=== PATIENT | male | born 1945 | race African-American/Black ===

== ENCOUNTER 2016-10-02 15:27 | Emergency (ER) | payer MEDICARE, OTHER ==
[2016-10-25] MEDS ORDERED: HYDROCODON-ACE1 EAC7 PO (06:44)
[2016-10-25] MEDS ORDERED: NEURONTIN300 MG PO (06:44)
== END 2016-10-02 15:54 | disposition home or self-care (01) ==
LOC: CFTX 15:27
DX: S91.332D Puncture wound without foreign body, left foot, subsequent encounter (principal); I10 Essential (primary) hypertension; E11.9 Type 2 diabetes mellitus without complications; Z88.0 Allergy status to penicillin; Z23 Encounter for immunization; E78.00 Pure hypercholesterolemia, unspecified
CPT/HCPCS: 73630; 90471; 90715; 99282; 99283

== ENCOUNTER 2016-10-06 20:54 | Inpatient (IN) | payer MEDICARE, OTHER ==
--- NOTE | ~2016-10-06 | DS ---
Unit #: [id number] #: [id number] Patient: ARELIS MEJÍA [id number] [address] [place], [place] [address] [id number] I MR#: [id number] NAME: ARELIS MEJÍA ROOM: 205 Age: 71 Sex: M Admission Date: 10/06/2016 : 1945 Discharge Date: 10/09/2016 Attending Physician: Dandre Heredia M.D. Primary Care Physician: Elpidio Antunez M.D. DISCHARGE SUMMARY FINAL DIAGNOSIS Left foot cellulitis, failed outpatient Cipro. SECONDARY DIAGNOSES 1. Diabetes mellitus type 2. 2. Hypertension. 3. Hyperlipidemia. 4. Peripheral vascular disease. CONSULTS None. DIAGNOSTIC STUDIES IMAGING: He had a CT scan of his left foot, which showed cellulitis. HOSPITAL COURSE This is a 71-year-old male who presented with cellulitis of the left foot, history of stepping on a nail. CT was done to evaluate for abscess. It was negative. CT just showed soft tissue infection. He was initially started on vancomycin; however, this was discontinued, and the plan is to discharge him home on oral Zyvox. He is to continue his course of Zyvox for 14 days and follow up with his PCP in the next 3-5 days. Will give him Percocet for pain. He will be discharged in stable condition. MEDICATIONS ON DISCHARGE 1. Percocet 10/325 mg 1 tablet p.o. q.4 hours p.r.n. (#30 pills given). 2. Zyvox 600 mg p.o. b.i.d. for 14 days. 3. Januvia 100 mg p.o. daily per home dose. 4. Norvasc 10 mg p.o. q.h.s. 5. TriCor 145 mg p.o. daily. 6. Lovastatin 10 mg at bedtime. 7. Lisinopril 30 mg p.o. daily. 8. Florastor 250 mg p.o. b.i.d. 9. Aspirin 81 mg p.o. daily. 10. Glipizide 20 mg p.o. b.i.d. 11. Vitamin D 1,000 units p.o. daily. DISCHARGE PLAN He will be discharged home with home health if he is agreeable. NOTE: Time spent coordinating discharge was about 24 minutes. Unit #: [id number] #: [id number] Patient: ARELIS MEJÍA Dictated by..Nikki Choi/campbell TD: 10/09/2016 12:22 JOB #: [id number] DISCHARGE SUMMARY X Parul Burns MD X DISCHARGE SUMMARY
--- NOTE | ~2016-10-06 | CT90 ---
[facility] A Service of [facility] RADIOLOGY TEXT RESULTS PATIENT: ARELIS MEJÍA LOCATION: C2A : 46 UNIT #: [id number] AGE: [address]: Dandre Heredia MD SEX: M ORDER DR: [id number] [facility] [address] [facility]. [place], [place] [address] [id number] I MR#: [id number] Acc #: [id number] NAME: ARELIS MEJÍA : 1945 SEX: M STUDY DATE/TIME: 10/07/2016 17:43 UNIT: C2 ROOM: 205 STUDY DESCRIPTION: CT Lower Ext Lt W Cont Attending Physician: Dandre Heredia M.D. Ordering Physician: Dandre Heredia M.D. Primary Care Physician: Elpidio Antunez M.D. MEDICAL IMAGING REPORT This report is preliminary unless electronic signature is present EXAM CT of the left foot with IV contrast 10/07/2016 at 17:43 HISTORY Diffuse left foot redness over the metatarsal regions, left foot cellulitis. Evaluate for abscess. Stepped on a nail on 10/02/2016. COMPARISON Left foot radiographs 10/06/2016. TECHNIQUE 2 mm axial images through the left foot after IV contrast administration. Sagittal and coronal reformatted images were obtained. This CT exam was performed with one or more of the following radiation dose reduction techniques: automatic exposure control, adjustment of mA and/or kV according to patient size, and iterative reconstruction. FINDINGS Diffuse subcutaneous edema and skin thickening is seen throughout the imaged left foot and ankle, in keeping with a stated history of cellulitis. However, no drainable fluid collection or abscess is identified. Dense calcific atherosclerotic features are demonstrated in the left foot and ankle. No periosteal reaction is seen and no CT evidence of osteomyelitis. No retained radiopaque foreign body. IMPRESSION 1. Diffuse left foot and ankle soft tissue swelling and skin thickening in keeping the stated history of cellulitis. No drainable fluid collection, abscess or retained radiopaque foreign body is seen. [facility] A Service of [facility] RADIOLOGY TEXT RESULTS PATIENT: ARELIS MEJÍA LOCATION: [facility] 205-01 : 46 UNIT #: [id number] AGE: [address]: Dandre Heredia MD SEX: M ORDER DR: Dictated by... Yu Teixeira M.D. THIS IS AN ELECTRONICALLY VERIFIED REPORT Yu Teixeira M.D. at 10/08/2016 9:14 AM VERNELL/felice TD: 10/07/2016 23:12 JOB #: [id number] MEDICAL IMAGING REPORT COPY
--- NOTE | ~2016-10-06 | CR126 ---
[facility] A Service of [facility] RADIOLOGY TEXT RESULTS PATIENT: ARELIS MEJÍA LOCATION: [facility] 205-01 : 46 UNIT #: [id number] AGE: [address]: Dandre Heredia MD SEX: M ORDER DR: [id number] [facility] [address] [facility]. [place], [place] [address] [id number] I MR#: [id number] Acc #: [id number] NAME: ARELIS MEJÍA : 1945 SEX: M STUDY DATE/TIME: 10/06/2016 20:01 UNIT: CEDOF ROOM: 50475 STUDY DESCRIPTION: CR Foot Complete Min 3 View Lt Attending Physician: Dandre Heredia M.D. Ordering Physician: Clinton Cox [place] Isaias Esparza Primary Care Physician: Elpidio Antunez M.D. MEDICAL IMAGING REPORT This report is preliminary unless electronic signature is present EXAM 3 views left foot performed on 10/06/2016. HISTORY 71-year-old male with puncture wound stepping on a nail 1 week ago. Patient has swelling and inflammation at the puncture site. FINDINGS The bone density and alignment appears within normal limits for the patient's age. No fracture is seen. No abnormal gas collection is present. No evidence of osteomyelitis is seen. IMPRESSION 1. No fracture or dislocation. 2. No soft tissue abnormal gas collection or evidence of abscess. Dictated by... Barber Khalil M.D. THIS IS AN ELECTRONICALLY VERIFIED REPORT Barber Khalil M.D. at 10/07/2016 7:06 PM HARLEY/bhavana TD: 10/06/2016 23:55 JOB #: [id number] MEDICAL IMAGING REPORT COPY
--- NOTE | ~2016-10-06 | A ---
[facility] Nutrition Therapy DATE: 10/08/16 Patient: ARELIS MEJÍA Physician: MONA Address: [address] [facility] Room/Bed: [address] [place] [address], Zip: [place] [address] Admit Date: 10/06/16 Date of : [birth year] Height: 5 11.5 Weight: 232 105.23 NUTRITIONAL ASSESSMENT: REASON: CONSULT RE: DIET EDUCATION PT IS 71 Y.O. MALE ADMITTED FOR (L) FOOT CELLULITIS HT: 5'11.5", WT: 231# (105 KG), BMI: 31.8 RD PROVIDED WRITTEN AND VERBAL CC DIET EDUCATION. RD PROVIDED LIST OF FOODS TO AVOID/LIMIT AND FOODS TO EAT MORE OFTEN. RD ALSO EMPHASIZED IMPORTANCE OF CONSUMING CONSISTENT MEAL SCHEDULE + LIMIT SUGAR-SWEETENED BEVERAGES. PT REPORTS CONSUMING POTATOES, BREAD AND PASTA DAILY. THIS RD ENCOURAGED HEALTHIER ALTERNATIVES AND REVIEWED PORTION CONTROL. PT VERBALIZED UNDERSTANDING OF THE TOPIC. PT REPORTED NO DIET QUESTIONS AT THIS TIME. RD TO REMAIN AVAILABLE. RECOMMENDATIONS: 1. ENCOURAGE COMPLIANCE OF CURRENT DIET ORDER-CC+HH RD WILL F/U PER PROTOCOL Respectfully, LANEY WAY MS, RD, LD Food and Nutritional Services [facility] cc: client file
--- NOTE | ~2016-10-06 | HP ---
Unit #: [id number] #: [id number] Patient: ARELIS MEJÍA [id number] [address] [place], [place] [address] [id number] I MR#: [id number] NAME: ARELIS MEJÍA ROOM: 22055 Age: 71 Sex: M Admission Date: 10/06/2016 : 1945 Attending Physician: Ann Mitchell M.D. Primary Care Physician: Elpidio Antunez M.D. HISTORY AND PHYSICAL CHIEF COMPLAINT Left foot cellulitis failing outpatient Cipro. HISTORY This pleasant 71-year-old male with AODM, hypertension, hyperlipidemia, is admitted for left foot cellulitis. The patient was wearing work boots with a sponge sole when he stepped on a nail outside 1 week ago. He was seen in this emergency department the following day and was appropriately placed on Cipro, Lortab and given Tdap. However, he has since developed increasing pain, redness and swelling of the left foot. He was seen by his primary care physician, who recommended that he return back to the emergency department for further treatment. On examination, the patient has redness over the dorsum of the left metatarsal region spreading over the left foot. He has a closed puncture wound plantar aspect of the foot. Plain x-rays are negative for gas or definite abscess. Currently, he is receiving vancomycin. IS ALLERGIC TO PENICILLIN. PAST MEDICAL HISTORY 1. AODM. 2. Hypertension. 3. Hyperlipidemia. 4. Peripheral vascular disease. I note that arterial Dopplers were performed today revealing at least moderate ischemia of the right leg, based on toe pressures and waveform analysis, with ankle-brachial index of 0.75. 5. Bilateral total knee replacements. 6. Left biceps surgery. ALLERGIES PENICILLIN. MEDICATIONS 1. Aspirin 81 mg daily 2. Vitamin D 1,000 units daily 3. Januvia 100 mg daily 4. Lisinopril 30 mg daily 5. Norvasc 10 mg daily 6. Glipizide 20 mg b.i.d. 7. Mevacor 10 mg each evening 8. TriCor 145 mg daily FAMILY HISTORY Unit #: [id number] #: [id number] Patient: ARELIS MEJÍA Negative for diabetes, positive for COPD. SOCIAL HISTORY The patient lives with his . He stopped smoking 22 years ago. Drinks occasional alcohol. REVIEW OF SYSTEMS Notable for diabetes, hypertension, hyperlipidemia, left foot pain, redness, above-mentioned surgeries. Patient denies leg cramps with ambulation. All other systems were reviewed and are negative. PHYSICAL EXAMINATION GENERAL: Pleasant 71-year-old moderately obese male currently in no acute distress. VITAL SIGNS: Temperature 98.8, pulse 97, respirations 16, blood pressure 143/72, O2 saturation 98% on room air. HEENT EXAMINATION: Eyes PERRLA. Extraocular muscles are intact. Pharynx is benign. NECK: Supple without adenopathy or thyromegaly. CHEST: Clear. CARDIAC: Normal S1, S2 without S3, S4 or murmur. ABDOMEN: Bowel sounds are present. No hepatosplenomegaly, tenderness or masses. EXTREMITIES: Without edema. There is erythema noted over the left foot on the dorsal area of the left foot, and plantar metatarsal region. I am not able to palpate pedal pulses bilaterally. NEUROLOGIC EXAM: Patient is awake, alert, oriented. Cranial nerves are intact. Equal strength throughout. DIAGNOSTIC STUDIES ADMISSION LABORATORY: Hematocrit is 41.6, white blood count is 10.7, normal platelet count. Sed rate is 36. SMA-7: Glucose is 206. C-reactive protein is 7.9. IMAGING: Plain x-rays of the left foot - Negative, although I do see vascular calcifications. ASSESSMENT 1. Left foot cellulitis despite ciprofloxacin after stepping on a nail with work boots about a week ago. 2. Peripheral vascular disease. 3. Hypertension. 4. Adult-onset diabetes mellitus. 5. Hyperlipidemia. 6. Penicillin allergy. PLANS 1. Will cover with vancomycin and meropenem for possible Pseudomonas, Staph or anaerobes, although no gas is seen in the soft tissue and no crepitus is present on exam. 2. Podiatry has been consulted, and they are kindly seeing the patient in the ER currently. 3. Sliding-scale insulin for now. 4. DVT prophylaxis. 5. Florastor. 6. Further plans and/or consultants depending on above. Unit #: [id number] #: [id number] Patient: ARELIS MEJÍA Dictated by Nikki Thornton/psc TD: 10/07/2016 04:06 JOB #: [id number] CC: Elpidio Antunez M.D. HISTORY AND PHYSICAL X Ann Mitchell MD HISTORY AND PHYSICAL
[2016-10-06 20:34] LABS: BASOPHIL# 0.1 X10e3 (0-0.3); BASOPHIL% 0.9 % (0-2.5); DIFF IND NO; EOSINOPHIL# 0.3 X10e3 (0-0.7); HEMATOCRIT 41.6 % (38.0-50.0); HEMOGLOBIN 13.5 gm/dL (13.0-16.0); LYMPHOCYTE# 2.9 X10e3 (1.0-3.5); LYMPHOCYTE% 27.6 % (17.0-45.0); MEAN CELL VOLUME 84.6 FL (83-96); MEAN CORPUSCULAR HEMOGLOBIN 27.4 PG (28-34); MEAN CORPUSCULAR HGB CONC 32.4 g/dL (30-36); MEAN PLATELET VOLUME 9.5 FL (6.5-11.5); MONOCYTE% 9.2 % (3.0-12.0); NEUTROPHIL# 6.3 X10e3 (1.5-7.1); NEUTROPHIL% 59.3 % (40-75); PLATELET COUNT 231 X10e3 (140-420); RED BLOOD COUNT 4.92 X10e (3.90-5.60); RED CELL DISTRIBUTION WIDTH 12.7 % (11.0-15.5); WHITE BLOOD COUNT 10.7 X10e3 (4.0-10.5)
[2016-10-06 20:58] LABS: BLOOD UREA NITROGEN 17 mg/dL (9-23); BUN/CREATININE RATIO 13.07; CALCIUM SERUM 9.4 mg/dL (8.4-10.2); CARBON DIOXIDE 26 mmol/L (22-31); CHLORIDE 102 mmol/L (100-111); CREATININE SERUM 1.3 mg/dL (0.6-1.4); GLOM FILT RATE Estimated ABOVE60 mL/min (>60); GLUCOSE FASTING 206 mg/dL (70-110); POTASSIUM 4.2 mmol/L (3.5-5.1); SODIUM 137 mmol/L (135-145)
[2016-10-07 06:15] LABS: BASOPHIL# 0.1 X10e3 (0-0.3); BASOPHIL% 1.1 % (0-2.5); EOSINOPHIL# 0.2 X10e3 (0-0.7); EOSINOPHIL% 2.8 % (0.0-7.0); HEMATOCRIT 37.5 % (38.0-50.0); HEMOGLOBIN 12.3 gm/dL (13.0-16.0); LYMPHOCYTE# 2.3 X10e3 (1.0-3.5); LYMPHOCYTE% 26.8 % (17.0-45.0); MEAN CELL VOLUME 83.3 FL (83-96); MEAN CORPUSCULAR HEMOGLOBIN 27.3 PG (28-34); MEAN CORPUSCULAR HGB CONC 32.8 g/dL (30-36); MEAN PLATELET VOLUME 9.2 FL (6.5-11.5); MONOCYTE# 0.8 X10e3 (0-1.0); MONOCYTE% 9.6 % (3.0-12.0); NEUTROPHIL# 5.2 X10e3 (1.5-7.1); NEUTROPHIL% 59.7 % (40-75); PLATELET COUNT 204 X10e3 (140-420); RED BLOOD COUNT 4.51 X10e (3.90-5.60); RED CELL DISTRIBUTION WIDTH 12.5 % (11.0-15.5); WHITE BLOOD COUNT 8.6 X10e3 (4.0-10.5)
[2016-10-07 06:31] LABS: DIFF IND NO
[2016-10-07 07:35] LABS: ALBUMIN SERUM 3.7 g/dL (3.5-5.0); ALKALINE PHOSPHATASE 45 U/L (32-92); ALT (SGPT) 24 U/L (10-40); AST (SGOT) 20 U/L (10-42); BILIRUBIN,TOTAL 0.8 mg/dL (0.2-2.0); BLOOD UREA NITROGEN 14 mg/dL (9-23); BUN/CREATININE RATIO 12.72; CALCIUM SERUM 8.6 mg/dL (8.4-10.2); CARBON DIOXIDE 25 mmol/L (22-31); CHLORIDE 104 mmol/L (100-111); CREATININE SERUM 1.1 mg/dL (0.6-1.4); GLOM FILT RATE Estimated ABOVE60 mL/min (>60); GLUCOSE FASTING 201 mg/dL (70-110); POTASSIUM 4.4 mmol/L (3.5-5.1); PROTEIN TOTAL SERUM 6.8 g/dL (6.0-8.3); SODIUM 132 mmol/L (135-145)
[2016-10-07] MEDS ORDERED: JANUVIA PO (13:44)
[2016-10-07] MEDS ORDERED: VITAMIN D1000 UNI1 PO (13:44)
[2016-10-07] MEDS ORDERED: ASPIRIN81 MG PO (13:44)
[2016-10-07] MEDS ORDERED: NORVASC10 MG PO (13:45)
[2016-10-07] MEDS ORDERED: LISINOPRIL30 MG PO (13:45)
[2016-10-07] MEDS ORDERED: LOVASTATIN10 MG PO (13:46)
[2016-10-07] MEDS ORDERED: GLIPIZIDE2.5 MG/BO1 PO (13:46)
[2016-10-07] MEDS ORDERED: TRICOR145 MG PO (13:47)
[2016-10-08 05:18] LABS: BASOPHIL# 0.1 X10e3 (0-0.3); BASOPHIL% 0.7 % (0-2.5); EOSINOPHIL# 0.3 X10e3 (0-0.7); EOSINOPHIL% 3.6 % (0.0-7.0); HEMATOCRIT 38.2 % (38.0-50.0); HEMOGLOBIN 12.6 gm/dL (13.0-16.0); LYMPHOCYTE# 2.9 X10e3 (1.0-3.5); LYMPHOCYTE% 31.7 % (17.0-45.0); MEAN CELL VOLUME 82.7 FL (83-96); MEAN CORPUSCULAR HEMOGLOBIN 27.3 PG (28-34); MEAN PLATELET VOLUME 9.9 FL (6.5-11.5); MONOCYTE# 0.7 X10e3 (0-1.0); NEUTROPHIL# 5.2 X10e3 (1.5-7.1); PLATELET COUNT 237 X10e3 (140-420); RED BLOOD COUNT 4.62 X10e (3.90-5.60); RED CELL DISTRIBUTION WIDTH 12.6 % (11.0-15.5); WHITE BLOOD COUNT 9.3 X10e3 (4.0-10.5)
[2016-10-08 05:24] LABS: DIFF IND NO
[2016-10-08 06:06] LABS: BLOOD UREA NITROGEN 14 mg/dL (9-23); BUN/CREATININE RATIO 10.76; CALCIUM SERUM 9.1 mg/dL (8.4-10.2); CARBON DIOXIDE 26 mmol/L (22-31); CHLORIDE 101 mmol/L (100-111); CREATININE SERUM 1.3 mg/dL (0.6-1.4); GLOM FILT RATE Estimated ABOVE60 mL/min (>60); GLUCOSE FASTING 156 mg/dL (70-110); POTASSIUM 4.6 mmol/L (3.5-5.1); SODIUM 134 mmol/L (135-145)
[2016-10-09 04:47] LABS: HEMATOCRIT 38.5 % (38.0-50.0); HEMOGLOBIN 12.7 gm/dL (13.0-16.0); MEAN CELL VOLUME 83.6 FL (83-96); MEAN CORPUSCULAR HEMOGLOBIN 27.6 PG (28-34); MEAN PLATELET VOLUME 9.7 FL (6.5-11.5); RED BLOOD COUNT 4.61 X10e (3.90-5.60); RED CELL DISTRIBUTION WIDTH 12.2 % (11.0-15.5); WHITE BLOOD COUNT 9.3 X10e3 (4.0-10.5)
[2016-10-09 07:12] LABS: BLOOD UREA NITROGEN 14 mg/dL (9-23); BUN/CREATININE RATIO 12.72; CALCIUM SERUM 9.4 mg/dL (8.4-10.2); CARBON DIOXIDE 25 mmol/L (22-31); CHLORIDE 101 mmol/L (100-111); CREATININE SERUM 1.1 mg/dL (0.6-1.4); GLOM FILT RATE Estimated ABOVE60 mL/min (>60); GLUCOSE FASTING 188 mg/dL (70-110); POTASSIUM 4.7 mmol/L (3.5-5.1); SODIUM 135 mmol/L (135-145)
[2016-10-09] MEDS ORDERED: PERCOCET 10/3251 TAB PO (10:55)
[2016-10-09] MEDS ORDERED: ZYVOX600 MG PO (10:56)
[2016-10-09] MEDS ORDERED: DIGESTIVE PROB250 MG PO (10:56)
[2016-10-25] MEDS ORDERED: NEURONTIN300 MG PO (06:44)
[2016-10-25] MEDS ORDERED: HYDROCODON-ACE1 EAC7 PO (06:44)
== END 2016-10-09 12:00 | disposition home health service (06) | DRG 603 ==
LOC: CED 20:54 → CEDOF 22:30 → C2A 10-07 13:17
PROVIDERS: Emergency Medicine; Internal Medicine
DX: L03.116 Cellulitis of left lower limb (principal); I73.9 Peripheral vascular disease, unspecified; I10 Essential (primary) hypertension; E78.5 Hyperlipidemia, unspecified; Z88.0 Allergy status to penicillin; Z96.653 Presence of artificial knee joint, bilateral; Z79.82 Long term (current) use of aspirin; Z79.84 Long term (current) use of oral hypoglycemic drugs; Z87.891 Personal history of nicotine dependence; E66.9 Obesity, unspecified; Z68.31 Body mass index [BMI] 31.0-31.9, adult
CPT/HCPCS: 36415; 73630; 73701-LT; 80048; 80053; 80202; 82947; 83036; 85025; 85027; 85652; 86140; 93922; 96365; 96366; 96375; 99285; J1650; J1815; J2185; J2270; J3370; Q9967

== ENCOUNTER → 2016-10-25 | Outpatient (CLI) | payer MEDICARE, OTHER ==
[~2016-10-25] MED LIST: ASPIRIN81 MG PO; DIGESTIVE PROB250 MG PO; GLIPIZIDE2.5 MG/BO1 PO; HYDROCODON-ACE1 EAC7 PO; JANUVIA PO; LISINOPRIL30 MG PO; LOVASTATIN10 MG PO; NEURONTIN300 MG PO; NORVASC10 MG PO; PERCOCET 10/3251 TAB PO; TRICOR145 MG PO; VITAMIN D1000 UNI1 PO; ZYVOX600 MG PO
--- NOTE | ~2016-10-25 | OR ---
Unit #: [id number] #: [id number] Patient: ARELIS MEJÍA [id number] [address] [place], [place] [address] [id number] O MR#: [id number] NAME: ARELIS MEJÍA ROOM: Date of Procedure: 10/25/2016 Admission Date: 10/25/2016 Surgeon: Phoenix Reyez M.D. : 1945 Attending Physician: Phoenix Reyez M.D. Referring Physician: Phoenix Reyez M.D. Primary Care Physician: Elpidio Antunez M.D. OPERATIVE REPORT PROCEDURES PERFORMED 1. Aortogram. 2. Left lower extremity angiogram with second order catheterization. 3. Ultrasound-guided access of the right common femoral artery. 4. Percutaneous closure of right common femoral artery with 5-Maltese Mynx device. PREOPERATIVE DIAGNOSIS Peripheral vascular disease. POSTOPERATIVE DIAGNOSIS Peripheral vascular disease. FINDINGS 1. No significant disease seen of the infrarenal aorta. 2. No significant disease seen of the right common iliac artery. 3. No significant disease of the left common iliac artery, left external iliac artery. 4. Patent left and right renal arteries. 5. Mild calcification seen in the left common femoral artery, patent profunda artery with no significant disease. 6. Superficial femoral artery has no significant disease of the proximal aspect, mid thigh approximately 40% stenosis, with some calcification. 7. No significant disease of the distal superficial femoral artery. 8. Patent popliteal artery, with no significant disease, previous left total knee replacement visualized. 9. Anterior tibial artery is patent at its proximal aspect, then has two distinct areas of stenosis at the proximal portion, with poor runoff to the dorsalis pedis artery. 10. Tibioperoneal trunk is patent, proximal posterior tibial artery stenosis is approximately 50%, with some scattered distal disease, and occlusion at the ankle, with collateralization to the peroneal artery, with no in-line flow to the plantar arteries. 11. Peroneal artery is patent, with some mild disease at the proximal portion, and relatively disease free down to the ankle. INDICATIONS FOR PROCEDURE This is a 71-year-old gentleman, who stepped on a nail approximately 2-1/2 weeks ago and was treated for some cellulitis of the foot. He still has significant pain in his forefoot, with difficulty moving his toes. He had noninvasive vascular lab studies, which demonstrated his left AAMIR was 0.75, and his toe pressures were 44. I talked to the patient, when my Unit #: [id number] #: [id number] Patient: ARELIS MEJÍA suspicion that most of his pain was likely neuropathic in origin, given his history of diabetes. However, given his evidence of moderate arterial insufficiency, I did recommend a left leg angiogram, to evaluate for any significant obstruction or stenosis, which could be alleviated with the stent or balloon angioplasty. I talked to the patient about the risks and benefits of the procedure. The risks include, but were not limited to, contrast-induced nephropathy, access site hematoma, injury to the blood vessels, arterial thrombosis, and need for further procedures. The primary benefit of the procedure, will be to improve the circulation, if found on angiogram. The patient expressed understanding, and elected to proceed. The patient's previous creatinine was 1.4, and he received contrast hydration protocol, as well as of 50:50 contrast throughout the case. DESCRIPTION OF PROCEDURE After informed consent was obtained, the patient was brought to the operating room table and placed in supine position. The patient's groins were prepped and draped in standard fashion. At this point, a time-out procedure was performed. Using the ultrasound, I identified the femoral bifurcation in the common femoral artery. Under fluoroscopy, I identified the lower third of the femoral head. I injected 1% lidocaine into the groin. I then used the ultrasound device, to access the right common femoral artery, with a micro needle, I then advanced a micro Glidewire, and confirmed my position in the iliac artery with fluoroscopy. I then made a skin incision with a #11 blade, and exchanged out my micro needle for 4-Maltese MicroSheath catheter, using Seldinger technique. I then advanced a starter wire up into the aorta. My 4-Maltese MicroSheath catheter was then changed out for a 5-Maltese sheath. I then placed an Omni flush catheter to the level of L1/L2. I performed an aortogram, which demonstrated that the patient have patent bilateral renal arteries, no significant infrarenal aortic disease, and patent bilateral iliac arteries, with no significant disease. I then went up and over the aortic bifurcation with a stiff angled Glidewire, and engaged my Omni Flush catheter in the left external iliac artery. I then performed a 40 mL total bolus aarti of the left lower extremity. This demonstrated the patient had some mild calcification of his left common femoral artery, patent profunda artery, and patent proximal aspect of his left superficial femoral artery. There was some mild disease of the mid superficial femoral artery, approximately 40%, with some calcification. There was no significant collateralization noted proximal to the stenosis. There was no significant disease of the distal superficial femoral artery. The patient had a previous total knee replacement, which inhibited the view of the popliteal artery. The tibial vessels had the following findings: Anterior tibial artery was patent at the proximal aspect, but had some disease, and did not have in-line flow to the dorsalis pedis artery. The posterior tibial artery had disease at the proximal aspect of it, as well as the midportion, and again did not have good in-line flow to the plantar arteries. The peroneal artery appeared relatively disease free, with collateralization at the level of the ankle. There was good pedal flow throughout the foot. At this point, I exchanged out my Omni Flush catheter for 4-Maltese angled glide catheter, and advanced my Glidewire down the superficial femoral artery, and then engaged my catheter in the mid superficial femoral artery. The patient's left knee was flexed, and then right angled oblique view was obtained, to see the behind knee popliteal artery segment, which Unit #: [id number] #: [id number] Patient: ARELIS MEJÍA has been occluded by the total knee replacement. This demonstrated the popliteal artery is widely patent, with no evidence of significant disease. I then performed more dedicated hand injection shots of the foot, which confirmed that the patient had occlusion or high-grade stenosis of his posterior tibial and anterior tibial arteries at the ankles. I then performed a hand injection in the mid superficial femoral artery, to closer evaluate the stenosis that was seen on the bolus aarti. There did appear to be a 40% stenosis, with some calcification. It did not appear flow limiting, however. Given the patient's underlying symptoms of foot pain, which was felt to be largely neuropathic, I did not feel it was warranted to perform balloon angioplasty and/or stent. All wires and catheters were then removed from the groin. I performed a right angled oblique femoral bifurcation view, which demonstrated an adequate puncture site for percutaneous closure. A 5-Maltese Mynx device was then deployed, and additional manual pressure was held for 5 minutes. At the end of the case, all counts were correct and I was present for the entire duration of the procedure. Contrast used was Visipaque 85 mL, fluoro time 9 minutes. Dictated by.Aman. Nikki Barnett TD: 10/25/2016 12:39 JOB #: [id number] OPERATIVE REPORT Page 1 of 1 X X PROCEDURE OPERATIVE NOTE
[2016-10-25 06:32] LABS: HEMATOCRIT 37.4 % (38.0-50.0); HEMOGLOBIN 12.2 gm/dL (13.0-16.0); MEAN CELL VOLUME 83.9 FL (83-96); MEAN CORPUSCULAR HEMOGLOBIN 27.3 PG (28-34); MEAN CORPUSCULAR HGB CONC 32.5 g/dL (30-36); MEAN PLATELET VOLUME 8.2 FL (6.5-11.5); RED BLOOD COUNT 4.46 X10e (3.90-5.60); RED CELL DISTRIBUTION WIDTH 12.7 % (11.0-15.5); WHITE BLOOD COUNT 10.1 X10e3 (4.0-10.5)
[2016-10-25 06:49] LABS: PARTIAL THROMBOPLASTIN TIME 25.9 SECONDS (23.5-31.3); PROTHROMBIN TIME (PATIENT) 10.6 SECONDS (9.6-11.5)
[2016-10-25 07:14] LABS: BLOOD UREA NITROGEN 14 mg/dL (9-23); BUN/CREATININE RATIO 11.66; CALCIUM SERUM 9.1 mg/dL (8.4-10.2); CARBON DIOXIDE 25 mmol/L (22-31); CHLORIDE 103 mmol/L (100-111); CREATININE SERUM 1.2 mg/dL (0.6-1.4); GLOM FILT RATE Estimated ABOVE60 mL/min (>60); GLUCOSE FASTING 196 mg/dL (70-110); POTASSIUM 3.9 mmol/L (3.5-5.1); SODIUM 137 mmol/L (135-145)
== END | disposition home or self-care (01) ==
LOC: CIVR 05:52
PROVIDERS: Surgery
DX: I70.201 Unspecified atherosclerosis of native arteries of extremities, right leg (principal); L03.116 Cellulitis of left lower limb; E11.65 Type 2 diabetes mellitus with hyperglycemia; E78.5 Hyperlipidemia, unspecified; E78.00 Pure hypercholesterolemia, unspecified; Z88.0 Allergy status to penicillin; M19.90 Unspecified osteoarthritis, unspecified site; Z79.84 Long term (current) use of oral hypoglycemic drugs
CPT/HCPCS: 36415; 75625; 75710; 80048; 85027; 85610; 85730; C1725; C1760; C1769; J1644; J2250; J3010; Q9967

== ENCOUNTER → 2016-11-15 | Outpatient (CLI) | payer MEDICARE, OTHER ==
--- NOTE | ~2016-11-15 | CR126 ---
[facility] A Service of [facility] RADIOLOGY TEXT RESULTS PATIENT: ARELIS MEJÍA LOCATION: [facility] : [birth year] UNIT #: [id number] AGE: [address]: KIANA DAVALOS MD SEX: M ORDER DR: [id number] [place] [address] [facility]. [place], [place] [address] [id number] O MR#: [id number] Acc #: [id number] NAME: ARELIS MEJÍA : 1945 SEX: M STUDY DATE/TIME: 11/15/2016 17:03 UNIT: [facility] ROOM: STUDY DESCRIPTION: CR Foot Complete Min 3 View Lt Attending Physician: Kiana Davalos M.D. Referring Physician: Kiana Davalos M.D. Ordering Physician: Kiana Davalos M.D. Primary Care Physician: Kiana Davalos M.D. MEDICAL IMAGING REPORT This report is preliminary unless electronic signature is present EXAM Left foot, 11/15/2016 HISTORY 71-year-old male with pain and swelling around the second toe status post puncture wound 3 months ago. Stepped on a nail. COMPARISON Left foot 10/06/2016 FINDINGS 3 views of the left foot demonstrate no acute fracture or dislocation. No radiopaque foreign bodies. No evidence of soft tissue gas. Vascular calcifications are present. IMPRESSION 1. No acute bony abnormality. 2. No radiopaque foreign bodies or evidence of soft tissue gas. 3. Vascular calcifications. Dictated by... Leroy Bhatia M.D. THIS IS AN ELECTRONICALLY VERIFIED REPORT Leroy Bhatia M.D. at 11/17/2016 4:10 PM MAR/laith TD: 11/17/2016 00:10 JOB #: [id number] MEDICAL IMAGING REPORT [facility] A Service of [facility] RADIOLOGY TEXT RESULTS PATIENT: AREILS MEJÍA LOCATION: [facility] : [birth year] UNIT #: [id number] AGE: [address]: KIANA DAVALOS MD SEX: M ORDER DR: Page 1 of 1 COPY
== END | disposition home or self-care (01) ==
LOC: CRAD 16:47
DX: S91.332A Puncture wound without foreign body, left foot, initial encounter (principal); I73.89 Other specified peripheral vascular diseases
CPT/HCPCS: 73630

== ENCOUNTER → 2017-01-17 | Outpatient (CLI) | payer MEDICARE, OTHER ==
[2017-01-17 10:27] LABS: PROTHROMBIN TIME (PATIENT) 10.5 SECONDS (9.6-11.5)
[2017-01-17 11:02] LABS: BUN/CREATININE RATIO 12.85; CALCIUM SERUM 9.5 mg/dL (8.4-10.2); CREATININE SERUM 1.4 mg/dL (0.6-1.4); GLOM FILT RATE Estimated 58.6 mL/min (>60); POTASSIUM 4.9 mmol/L (3.5-5.1)
== END | disposition home or self-care (01) ==
LOC: CLAB 09:52
PROVIDERS: Surgery
DX: I73.9 Peripheral vascular disease, unspecified (principal); M86.9 Osteomyelitis, unspecified
CPT/HCPCS: 36415; 80048; 85610